=== PATIENT | male | born 1965 | race Two or more races ===

== ENCOUNTER 2022-11-01 14:34 | Inpatient (IN) | payer OTHER ==
[~2022-11-01] VITALS: Ht 182.9 cm; Wt 106.1 kg
[2022-11-02] MEDS ORDERED: SYNTHROID75 MCG PO (09:40)
[2022-11-02] MEDS ORDERED: COZAAR50 MG PO (09:41)
[2022-11-02] MEDS ORDERED: LIPITOR20 MG PO (09:41)
[2022-11-02] MEDS ORDERED: CENTRUM MEN'S1 EACH PO (09:41)
[2022-11-07] MEDS ORDERED: ATORVASTATIN CA10 MG (11:38)
[2022-11-07] MEDS ORDERED: SERTRALINE HCL100 MG (11:38)
[2022-11-07] MEDS ORDERED: RESTORIL30 MG (11:38)
[2022-11-07] MEDS ORDERED: CLONAZEPAM1 MG (11:38)
[2022-11-09] MEDS ORDERED: NORFLEX100MG PO (13:02)
[2022-11-09] MEDS ORDERED: GABAPENTIN100 MG PO (13:02)
[2022-11-09] MEDS ORDERED: OXYC1TAB9 PO (13:03)
[2022-11-09] MEDS ORDERED: XARELTO10 MG PO (13:04)
== END 2022-11-09 17:38 | DRG 470 ==
LOC: SURH 11-07 07:00 → O/R 11-07 08:05 → SURH 11-07 13:13
PROVIDERS: ADMIT Orthopaedic Surgery; ATTEND Orthopaedic Surgery
PROC: 0SRC0JZ Replacement of Right Knee Joint with Synthetic Substitute, Open Approach (ICD-10-PCS; principal; 2022-11-07 07:00)
DX: M17.11 Unilateral primary osteoarthritis, right knee (principal); D62 Acute posthemorrhagic anemia; M85.661 Other cyst of bone, right lower leg; I10 Essential (primary) hypertension; E03.9 Hypothyroidism, unspecified; G47.33 Obstructive sleep apnea (adult) (pediatric); Z96.651 Presence of right artificial knee joint; Z20.822 Contact with and (suspected) exposure to COVID-19